=== PATIENT | female | born 1995 | race Caucasian/White ===

== ENCOUNTER 2021-08-03 20:21 | Emergency (ER) | payer OTHER ==
[~2021-08-03] VITALS: Ht 165.1 cm; Wt 113.4 kg
[~2021-08-03 20:21] MED LIST: BACTRIM DS 8001 TA1 PO; BUSPAR5 MG PO; CLARITIN-D 12 H1 TAB PO; DEPO PROVER150 MG/M1 IM; FLONASE ALLERG9.9 ML NAS; HYDROXYZINE10 MG PO; KEFLEX500 MG PO; Lidex 0.05% Oin15 GM T; MUPIROCIN2% TP; PREDNICOT20 MG PO; ROBITUSSIN AC 110 ML PO
[2021-08-03 21:06] LABS: BILIRUBIN Negative (Negative); BLOOD Trace-Intact (Negative); CLARITY Cloudy (Clear); COLOR Yellow (Yellow); GLUCOSE Negative (Negative); KETONE Trace (Negative); LEUKO ESTERASE Trace (Negative); NITRITE Positive (Negative); PH 6.5 (4.5-8.0); SPECIFIC GRAVITY 1.025 (1.001-1.030)
[2021-08-03 21:16] LABS: BACTERIA 4+; MUCOUS TRACE; RBC 0-2 rbc/hpf (0-2)
[2021-08-03] MEDS ORDERED: CIPRO500 MG PO (21:46)
[2021-08-03] MEDS ORDERED: ANUSOL-HC25 MG R (21:46)
== END 2021-08-03 21:49 | disposition home or self-care (01) ==
LOC: ED 20:21
PROVIDERS: Internal Medicine
DX: N39.0 Urinary tract infection, site not specified (principal); K64.4 Residual hemorrhoidal skin tags

== ENCOUNTER 2021-08-17 18:43 | Emergency (ER) | payer OTHER ==
[~2021-08-17] VITALS: Ht 165.1 cm; Wt 118.4 kg
[~2021-08-17 18:43] MED LIST changes: +ANUSOL-HC25 MG R; +CIPRO500 MG PO
== END 2021-08-17 20:18 | disposition home or self-care (01) ==
LOC: ED 18:43
DX: B34.9 Viral infection, unspecified (principal); Z20.822 Contact with and (suspected) exposure to COVID-19

== ENCOUNTER 2021-09-06 17:43 | Emergency (ER) | payer OTHER ==
[~2021-09-06] VITALS: Ht 165.1 cm; Wt 113.4 kg
[2021-09-06 18:33] LABS: BILIRUBIN Negative (Negative); BLOOD 1+ (Negative); CLARITY Cloudy (Clear); COLOR Dark Yellow (Yellow); GLUCOSE Negative (Negative); KETONE Trace (Negative); LEUKO ESTERASE Negative (Negative); NITRITE Negative (Negative)
[2021-09-06 18:57] LABS: BACTERIA 3+; EPITHELIAL CELLS 0-2; MUCOUS 3+
[2021-09-06 19:07] LABS: BASO # 0.1 10*3/uL (0.0-0.1); BASO % 0.3 % (0.0-1.0); EOS # 0.3 10*3/uL (0.0-0.4); EOS % 1.8 % (1.0-4.0); HEMATOCRIT 44.7 % (37.0-47.0); LYMPH # 2.6 10*3/uL (1.3-4.4); MEAN CELL VOLUME 93.9 fl (81.0-99.0); MEAN CORPUSCULAR HGB 31.1 pg (27.0-31.0); MEAN CORPUSCULAR HGB CONC 33.1 g/dl (33.0-37.0); MEAN PLATELET VOLUME 10.7 fl (9.6-12.3); MONO # 0.9 10*3/uL (0.1-1.0); MONO % 5.8 % (3.0-9.0); NEUT # 11.4 10*3/uL (2.3-7.9); NEUT % 74.7 % (47.0-73.0); PLATELET COUNT AUTOMATED 211 10*3/uL (130-400); RED BLOOD COUNT 4.76 10*6/uL (4.10-5.10); RED CELL DISTRI WIDTH 12.7 % (0-14.5); WHITE BLOOD COUNT 15.2 10*3/uL (4.8-10.8)
[2021-09-06 19:23] LABS: ALBUMIN 3.8 gm/dl (3.1-4.5); ALKALINE PHOSPHATASE 80 U/L (45-117); BUN 6 mg/dl (7-24); CHLORIDE 108 mmol/L (98-107); CREATININE 0.66 mg/dL (0.55-1.02); POTASSIUM 3.6 mmol/L (3.5-5.1); SGOT/AST 10 IU/L (3-35); SGPT/ALT 20 U/L (12-78); SODIUM 142 mmol/L (136-145); TOTAL PROTEIN 7.6 gm/dL (6.4-8.2)
[2021-09-06 19:25] LABS: B-hCG (QUALITATIVE) NEGATIVE (NEGATIVE)
[2021-09-06] MEDS ORDERED: METHOCARBAMOL750 M1 PO (19:57)
[2021-09-06] MEDS ORDERED: NAPROXEN250 MG PO (19:57)
== END 2021-09-06 20:04 | disposition home or self-care (01) ==
LOC: ED 17:43
PROVIDERS: Emergency Medicine
DX: S00.83XA Contusion of other part of head, initial encounter (principal); S70.02XA Contusion of left hip, initial encounter; S20.212A Contusion of left front wall of thorax, initial encounter; F17.210 Nicotine dependence, cigarettes, uncomplicated; E66.01 Morbid (severe) obesity due to excess calories; V49.59XA Passenger injured in collision with other motor vehicles in traffic accident, initial encounter; Y93.89 Activity, other specified; Y92.413 State road as the place of occurrence of the external cause; Y99.9 Unspecified external cause status

== ENCOUNTER 2021-11-28 14:19 | Emergency (ER) | payer OTHER ==
[~2021-11-28] VITALS: Wt 113.4 kg
[~2021-11-28 14:19] MED LIST changes: +METHOCARBAMOL750 M1 PO; +NAPROXEN250 MG PO
[2021-11-28 15:12] LABS: BILIRUBIN Negative (Negative); BLOOD Trace-Intact (Negative); CLARITY Cloudy (Clear); COLOR Yellow (Yellow); GLUCOSE Negative (Negative); KETONE Negative (Negative); LEUKO ESTERASE Trace (Negative); NITRITE Negative (Negative); PH 7.5 (4.5-8.0); SPECIFIC GRAVITY 1.015 (1.001-1.030)
[2021-11-28 15:27] LABS: BASO % 0.3 % (0.0-1.0); EOS # 0.3 10*3/uL (0.0-0.4); EOS % 2.6 % (1.0-4.0); HEMATOCRIT 39.7 % (37.0-47.0); LYMPH # 2.7 10*3/uL (1.3-4.4); LYMPH % 21.5 % (27.0-41.0); MEAN CELL VOLUME 91.1 fl (81.0-99.0); MEAN CORPUSCULAR HGB 31.4 pg (27.0-31.0); MEAN CORPUSCULAR HGB CONC 34.5 g/dl (33.0-37.0); MEAN PLATELET VOLUME 10.9 fl (9.6-12.3); MONO # 0.7 10*3/uL (0.1-1.0); MONO % 5.3 % (3.0-9.0); NEUT # 8.7 10*3/uL (2.3-7.9); NEUT % 69.9 % (47.0-73.0); PLATELET COUNT AUTOMATED 169 10*3/uL (130-400); RED BLOOD COUNT 4.36 10*6/uL (4.10-5.10); RED CELL DISTRI WIDTH 11.9 % (0-14.5); WHITE BLOOD COUNT 12.5 10*3/uL (4.8-10.8)
[2021-11-28] MEDS ORDERED: VITAMIN B-625 M1 PO (15:34)
[2021-11-28] MEDS ORDERED: UNISOM SLEEP AI25 MG PO (15:34)
[2021-11-28 15:41] LABS: ALKALINE PHOSPHATASE 69 U/L (45-117); BUN 4 mg/dl (7-24); CHLORIDE 107 mmol/L (98-107); CREATININE 0.42 mg/dL (0.55-1.02); POTASSIUM 3.7 mmol/L (3.5-5.1); SGOT/AST 14 IU/L (3-35); SGPT/ALT 22 U/L (12-78); SODIUM 137 mmol/L (136-145); TOTAL PROTEIN 7.5 gm/dL (6.4-8.2)
[2021-11-28 15:49] LABS: BACTERIA 2+; EPITHELIAL CELLS 0-2; RBC 31-40 rbc/hpf (0-2)
== END 2021-11-28 16:15 | disposition home or self-care (01) ==
LOC: ED 14:19
PROVIDERS: Nurse Practitioner Family
DX: O21.9 Vomiting of pregnancy, unspecified (principal); Z3A.10 10 weeks gestation of pregnancy

== ENCOUNTER 2024-03-18 19:05 | Emergency (ER) | payer OTHER ==
[~2024-03-18] VITALS: Ht 165.1 cm; Wt 108.9 kg
[~2024-03-18 19:05] MED LIST changes: +UNISOM SLEEP AI25 MG PO; +VITAMIN B-625 M1 PO
[2024-03-18] MEDS ORDERED: Ketorolac Tromethamine 30 MG/ML VIAL IM ONE (19:25)
[2024-03-18] MEDS ORDERED: AMOX-CLAV 875-1 EACH PO (21:22)
[2024-03-18] MEDS ORDERED: Amoxicillin/Clavulanate Pota 875 MG TAB PO ONE (21:25)
[2024-03-18] MEDS ORDERED: ACETAMINOPHEN 325 MG TAB PO ONE (21:25)
== END 2024-03-18 21:24 | disposition home or self-care (01) ==
LOC: ED 19:05
DX: J32.9 Chronic sinusitis, unspecified (principal); F41.9 Anxiety disorder, unspecified; Z98.890 Other specified postprocedural states

== ENCOUNTER → 2024-07-18 | Outpatient (CLI) | payer OTHER ==
[~2024-07-18] MED LIST changes: +AMOX-CLAV 875-1 EACH PO
== END | disposition home or self-care (01) ==
LOC: RAD 09:18
PROVIDERS: ATTEND Nurse Practitioner Family
DX: J34.89 Other specified disorders of nose and nasal sinuses (principal); Y09 Assault by unspecified means